=== PATIENT | male | born 1970 | race Caucasian/White ===

== ENCOUNTER 2018-12-21 16:11 | Emergency (ER) | payer OTHER ==
[~2018-12-21] VITALS: Ht 172.7 cm; Wt 74.8 kg
[~2018-12-21 16:11] MED LIST: ACET325 PO; ASPI325 PO; CEPH500 PO; CYCL10 PO; Cleocin HCl150 MG PO; DOXY100 PO; HYDACE5 PO; HYDACE5325 PO; IBUP400 PO; IBUP600 PO; IBUP800 PO; PENVK250 PO; PENVK500 PO; PROACE100 PO; RXOXYACE PO
[2018-12-21] MEDS ORDERED: IBUP800 PO (18:36)
== END 2018-12-21 18:44 | disposition home or self-care (01) ==
LOC: ER 16:11
DX: S93.402A Sprain of unspecified ligament of left ankle, initial encounter (principal); F17.200 Nicotine dependence, unspecified, uncomplicated; W19.XXXA Unspecified fall, initial encounter
CPT/HCPCS: 73610; 73630; 99283-25

== ENCOUNTER 2022-10-26 16:55 | Emergency (ER) | payer SELFPAY ==
[~2022-10-26] VITALS: Ht 175.3 cm; Wt 74.8 kg
[2022-10-26 17:47] LABS: BASOPHILS ABSOLUTE AUTO 0.03 K/mm3 (0.00-0.23); BASOPHILS PERCENT AUTO 0 % (0-2); EOSINOPHILS ABSOLUTE AUTO 0.19 K/mm3 (0.00-0.68); EOSINOPHILS PERCENT AUTO 2 % (0-6); Hematocrit 45.6 % (37.0-53.0); Hemoglobin 15.2 g/dL (13.5-17.5); IMMATURE GRAN ABSOLUTE AUTO 0.02 K/mm3 (0.00-0.10); IMMATURE GRAN PERCENT AUTO 0 % (0-1); LYMPHOCYTES ABSOLUTE AUTO 2.88 K/mm3 (0.84-5.20); LYMPHOCYTES PERCENT AUTO 26 % (21-46); MONOCYTES ABSOLUTE AUTO 1.02 K/mm3 (0.16-1.47); MONOCYTES PERCENT AUTO 9 % (4-13); Mean Corpuscular HGB 28.8 pg (26.0-34.0); Mean Corpuscular HGB Conc 33.3 g/dL (31.5-36.5); Mean Corpuscular Volume 86 fL (80-100); Mean Platelet Volume 10.7 fL (9.1-12.4); NEUTROPHILS ABSOLUTE AUTO 6.88 K/mm3 (1.96-9.15); NEUTROPHILS PERCENT AUTO 62 % (41-73); Platelet Count 215 K/mm3 (150-400); RDW Coefficient Variation 14.3 % (11.7-14.2); RDW Standard Deviation 45.1 fL (35.1-46.3); Red Blood Cell Count 5.28 M/mm3 (4.30-5.90); White Blood Cell Count 11.02 K/mm3 (4.00-11.30)
[2022-10-26 18:06] LABS: Albumin, Blood 3.7 g/dL (3.4-5.0); Albumin/Globulin Ratio 0.8 (0.8-1.8); Bilirubin, Total 0.4 mg/dL (0.1-1.0); Bun/Creatinine Ratio 23.1 (12.0-20.0); Calcium, Blood 8.9 mg/dL (8.5-10.1); Globulin, Blood 4.4 g/dL (2.2-4.0); Potassium, Blood 4.3 mmol/L (3.5-5.5); Total Protein, Blood 8.1 g/dL (6.4-8.2)
[2022-10-26] MEDS ORDERED: Percocet 5-3251 EACH PO (19:25)
[2022-10-26 20:01] VITALS: BP 127/90
== END 2022-10-26 20:01 | disposition home or self-care (01) ==
LOC: ER 16:55
PROVIDERS: Student in an Organized Health Care Education/Training Program
DX: S22.42XA Multiple fractures of ribs, left side, initial encounter for closed fracture (principal); J44.9 Chronic obstructive pulmonary disease, unspecified; W22.8XXA Striking against or struck by other objects, initial encounter; F17.200 Nicotine dependence, unspecified, uncomplicated
CPT/HCPCS: 71046; 80053; 85025; 93005; 93010; 99284-25; A9270

== ENCOUNTER 2023-12-26 16:42 | Emergency (ER) | payer OTHER ==
[~2023-12-26] VITALS: Ht 172.7 cm; Wt 74.8 kg
[~2023-12-26 16:42] MED LIST changes: +Percocet 5-3251 EACH PO
[2023-12-26] MEDS ORDERED: NITR.4SL SL (16:51)
[2023-12-26] MEDS ORDERED: Ketorolac Tromethamine 15mg Vial IM ONE (17:10)
[2023-12-26] MEDS ORDERED: Acetaminophen 500 MG Tab PO ONE (17:10)
[2023-12-26] MEDS ORDERED: OxyCODONE HCL 5 MG TAB PO ONE (18:10)
[2023-12-26 19:08] VITALS: BP 151/95
== END 2023-12-26 19:09 | disposition home or self-care (01) ==
LOC: ER 16:42
DX: S63.502A Unspecified sprain of left wrist, initial encounter (principal); S80.02XA Contusion of left knee, initial encounter; S54.22XA Injury of radial nerve at forearm level, left arm, initial encounter; S50.02XA Contusion of left elbow, initial encounter; V13.4XXA Pedal cycle driver injured in collision with car, pick-up truck or van in traffic accident, initial encounter; F17.210 Nicotine dependence, cigarettes, uncomplicated
CPT/HCPCS: 73080; 73110; 73562-LT; 99284-25; A9270; J1885

== ENCOUNTER 2024-04-14 22:10 | Emergency (ER) | payer OTHER ==
[~2024-04-14] VITALS: Ht 172.7 cm; Wt 59.0 kg
[~2024-04-14 22:10] MED LIST changes: +NITR.4SL SL
[2024-04-14 22:35] VITALS: BP 131/78
[2024-04-15] MEDS ORDERED: Amoxicillin/Clavulanate K 875 MG Tab PO ONE (00:15)
[2024-04-15] MEDS ORDERED: Diphth,Pertuss(Acell),Tet Vac 0.5 ML VIAL IM ONE (00:15)
[2024-04-15] MEDS ORDERED: Ketorolac Tromethamine 30mg Vial IV ONE (00:20)
[2024-04-15] MEDS ORDERED: Lidocaine 4% 1 Patch TOP ONE (00:20)
[2024-04-15 01:09] LABS: BASOPHILS ABSOLUTE AUTO 0.04 K/mm3 (0.00-0.23); BASOPHILS PERCENT AUTO 0 % (0-2); EOSINOPHILS ABSOLUTE AUTO 0.08 K/mm3 (0.00-0.68); EOSINOPHILS PERCENT AUTO 1 % (0-6); Hematocrit 44.1 % (37.0-53.0); Hemoglobin 15.1 g/dL (13.5-17.5); IMMATURE GRAN ABSOLUTE AUTO 0.06 K/mm3 (0.00-0.10); IMMATURE GRAN PERCENT AUTO 0 % (0-1); LYMPHOCYTES ABSOLUTE AUTO 2.43 K/mm3 (0.84-5.20); LYMPHOCYTES PERCENT AUTO 15 % (21-46); MONOCYTES ABSOLUTE AUTO 1.18 K/mm3 (0.16-1.47); MONOCYTES PERCENT AUTO 7 % (4-13); Mean Corpuscular HGB Conc 34.2 g/dL (31.5-36.5); Mean Corpuscular Volume 85 fL (80-100); Mean Platelet Volume 9.4 fL (9.1-12.4); NEUTROPHILS ABSOLUTE AUTO 12.57 K/mm3 (1.96-9.15); NEUTROPHILS PERCENT AUTO 77 % (41-73); Platelet Count 231 K/mm3 (150-400); RDW Standard Deviation 43.1 fL (35.1-46.3); White Blood Cell Count 16.36 K/mm3 (4.00-11.30)
[2024-04-15 01:30] LABS: Albumin, Blood 3.9 g/dL (3.4-5.0); Albumin/Globulin Ratio 0.9 (0.8-1.8); Bilirubin, Total 0.9 mg/dL (0.1-1.0); Bun/Creatinine Ratio 24.6 (12.0-20.0); Calcium, Blood 9.4 mg/dL (8.5-10.1); Creatinine, Blood 0.89 mg/dL (0.60-1.20); Globulin, Blood 4.3 g/dL (2.2-4.0); Total Protein, Blood 8.2 g/dL (6.4-8.2)
[2024-04-15] MEDS ORDERED: AMOCLA875 PO (04:15)
[2024-04-15] MEDS ORDERED: LIDO700A20 TOP (04:15)
== END 2024-04-15 04:25 | disposition home or self-care (01) ==
LOC: ER 22:10
PROVIDERS: Emergency Medicine
DX: S22.41XA Multiple fractures of ribs, right side, initial encounter for closed fracture (principal); S51.851A Open bite of right forearm, initial encounter; S60.812A Abrasion of left wrist, initial encounter; S00.01XA Abrasion of scalp, initial encounter; F17.200 Nicotine dependence, unspecified, uncomplicated; W54.0XXA Bitten by dog, initial encounter; Z23 Encounter for immunization
CPT/HCPCS: 71101; 74177; 80053; 85025; 90471; 90715; 96374; 99284-25; A9270; J1885; Q9967

== ENCOUNTER 2024-04-17 11:53 | Emergency (ER) | payer OTHER ==
[~2024-04-17] VITALS: Ht 175.3 cm; Wt 61.2 kg
[~2024-04-17 11:53] MED LIST changes: +AMOCLA875 PO; +LIDO700A20 TOP
[2024-04-17] MEDS ORDERED: Acetaminophen 500 MG Tab PO ONE (12:40)
[2024-04-17 13:06] LABS: BASOPHILS ABSOLUTE AUTO 0.04 K/mm3 (0.00-0.23); BASOPHILS PERCENT AUTO 0 % (0-2); EOSINOPHILS ABSOLUTE AUTO 0.07 K/mm3 (0.00-0.68); EOSINOPHILS PERCENT AUTO 1 % (0-6); Hematocrit 38.3 % (37.0-53.0); Hemoglobin 13.2 g/dL (13.5-17.5); IMMATURE GRAN ABSOLUTE AUTO 0.03 K/mm3 (0.00-0.10); IMMATURE GRAN PERCENT AUTO 0 % (0-1); LYMPHOCYTES ABSOLUTE AUTO 0.77 K/mm3 (0.84-5.20); LYMPHOCYTES PERCENT AUTO 7 % (21-46); MONOCYTES ABSOLUTE AUTO 0.97 K/mm3 (0.16-1.47); MONOCYTES PERCENT AUTO 9 % (4-13); Mean Corpuscular HGB 29.6 pg (26.0-34.0); Mean Corpuscular HGB Conc 34.5 g/dL (31.5-36.5); Mean Corpuscular Volume 86 fL (80-100); Mean Platelet Volume 9.7 fL (9.1-12.4); NEUTROPHILS ABSOLUTE AUTO 9.46 K/mm3 (1.96-9.15); NEUTROPHILS PERCENT AUTO 83 % (41-73); Platelet Count 171 K/mm3 (150-400); RDW Coefficient Variation 13.8 % (11.7-14.2); RDW Standard Deviation 43.3 fL (35.1-46.3); Red Blood Cell Count 4.46 M/mm3 (4.30-5.90); White Blood Cell Count 11.34 K/mm3 (4.00-11.30)
[2024-04-17 13:27] LABS: Albumin, Blood 3.5 g/dL (3.4-5.0); Albumin/Globulin Ratio 0.9 (0.8-1.8); Bilirubin, Total 0.6 mg/dL (0.1-1.0); Bun/Creatinine Ratio 14.6 (12.0-20.0); Calcium, Blood 8.8 mg/dL (8.5-10.1); Creatinine, Blood 0.75 mg/dL (0.60-1.20); Total Protein, Blood 7.5 g/dL (6.4-8.2)
[2024-04-17 14:18] LABS: Source, Urine Clean Catch
[2024-04-17 14:36] LABS: Appearance, Urine Clear (Clear); Bilirubin, Urine Neg (Neg); Blood, Urine Neg (Neg); Color, Urine Yellow (P-Yellow); Glucose Qualitative, Urine Neg (Neg); Ketones, Urine Neg (Neg); Leukocyte Esterase, Urine Neg (Neg); Nitrite, Urine Neg (Neg); Protein, Urine Neg (Neg); Urobilinogen, Urine NORM (Normal)
[2024-04-17 14:53] LABS: Influenza A, PCR NEGATIVE (NEGATIVE); Influenza B, PCR NEGATIVE (NEGATIVE); Resp Syncytial Virus, PCR NEGATIVE (NEGATIVE); SARS-Cov-2 (COVID-19) PCR, MMC NEGATIVE (NEGATIVE)
[2024-04-17] MEDS ORDERED: IBUP800 PO (15:08)
[2024-04-17 15:11] VITALS: BP 141/88
== END 2024-04-17 15:18 | disposition home or self-care (01) ==
LOC: ER 11:53
PROVIDERS: Emergency Medicine; Physician Assistant
DX: S22.41XA Multiple fractures of ribs, right side, initial encounter for closed fracture (principal); S22.32XA Fracture of one rib, left side, initial encounter for closed fracture; Y09 Assault by unspecified means; B34.9 Viral infection, unspecified; J44.9 Chronic obstructive pulmonary disease, unspecified; F17.200 Nicotine dependence, unspecified, uncomplicated; Z79.899 Other long term (current) drug therapy
CPT/HCPCS: 0241U; 71046; 74177; 80053; 81003; 85025; 99284-25; A9270; Q9967

== ENCOUNTER 2024-10-17 22:36 | Emergency (ER) | payer OTHER ==
[~2024-10-17] VITALS: Ht 172.7 cm; Wt 54.4 kg
[2024-10-18] MEDS ORDERED: Acetaminophen 500 MG Tab PO ONE (01:00)
[2024-10-18] MEDS ORDERED: Ibuprofen 600 MG Tab PO ONE (01:00)
[2024-10-18] MEDS ORDERED: IBUP600 PO (02:39)
[2024-10-18] MEDS ORDERED: ACET500 PO (02:39)
[2024-10-18] MEDS ORDERED: PERCOCET 10-321 EA13 PO (02:39)
[2024-10-18] MEDS ORDERED: LIDO700A20 TOP (02:39)
[2024-10-18 02:50] VITALS: BP 130/84
== END 2024-10-18 03:02 | disposition home or self-care (01) ==
LOC: ER 22:36
DX: S22.42XA Multiple fractures of ribs, left side, initial encounter for closed fracture (principal); J44.9 Chronic obstructive pulmonary disease, unspecified; F17.200 Nicotine dependence, unspecified, uncomplicated; V28.49XA Other motorcycle driver injured in noncollision transport accident in traffic accident, initial encounter; Y93.55 Activity, bike riding
CPT/HCPCS: 71046; 71250; 72128; 99284-25; A9270

== ENCOUNTER 2025-04-25 12:30 | Emergency (ER) | payer OTHER ==
[~2025-04-25] VITALS: Ht 167.6 cm; Wt 587.9 kg
[~2025-04-25 12:30] MED LIST changes: +ACET500 PO; +PERCOCET 10-321 EA13 PO
[2025-04-25 12:46] VITALS: BP 164/113
[2025-04-25] MEDS ORDERED: Lidocaine 4% 1 Patch TOP ONE (12:55)
[2025-04-25] MEDS ORDERED: Ketorolac Tromethamine 15mg Vial IM ONE (13:00)
== END 2025-04-25 13:48 | disposition home or self-care (01) ==
LOC: ER 12:30
DX: M54.50 Low back pain, unspecified (principal); W17.89XA Other fall from one level to another, initial encounter; F17.200 Nicotine dependence, unspecified, uncomplicated
CPT/HCPCS: 72131; 96372; 99283-25; A9270; J1885